=== PATIENT | male | born 1960 | race Caucasian/White ===

== ENCOUNTER 2017-11-08 12:48 | Day surgery (SDC) | payer OTHER ==
[~2017-11-08] VITALS: Ht 180.3 cm; Wt 80.6 kg
[~2017-11-08 12:48] MED LIST: DOXY100T53 PO; GEMF600 PO; HYDCHL25 PO; LOSA50 PO; ONDA8 PO
== END 2017-11-08 14:38 | disposition home or self-care (01) ==
LOC: ORSCSDS 12:48
PROVIDERS: Internal Medicine Gastroenterology
PROC: 0DBC8ZX Excision of Ileocecal Valve, Via Natural or Artificial Opening Endoscopic, Diagnostic (ICD-10-PCS; principal; 2017-11-08 14:00)
PROC: 0DBP8ZX Excision of Rectum, Via Natural or Artificial Opening Endoscopic, Diagnostic (ICD-10-PCS; principal; 2017-11-08 14:00)
DX: Z12.11 Encounter for screening for malignant neoplasm of colon (principal); K62.1 Rectal polyp; K57.30 Diverticulosis of large intestine without perforation or abscess without bleeding; I10 Essential (primary) hypertension; Z79.899 Other long term (current) drug therapy
CPT/HCPCS: 88305; J7120

== ENCOUNTER 2024-09-07 08:33 | Day surgery (SDC) | payer OTHER ==
[~2024-09-07] VITALS: Ht 178 cm; Wt 99.0 kg
[~2024-09-07 08:33] MED LIST changes: +ATOR20; +Avodart0.5 MG PO; +HYDROCHLOROTH12.5 MG PO; +LEVSOD75 PO; +NS 500 ML IV SCH; +TAMS.4ER PO
[2024-09-07 09:47] VITALS: BP 169/81
--- NOTE | 2024-09-07 09:55 | NUR ---
History, Chart, Medications and Allergies reviewed before start of procedure. Patient up to Ambulate independently. Gait steady. Pre-Op teaching done. Pt verbalizes understanding. Patient confirms NPO status and agrees with scheduled surgery. Patient states colon prep results clear. Patient States Post-Procedure ride home has been arranged.
[2024-09-07] MEDS ORDERED: propofoL 20 ML IV ONE ×2 (10:49→10:59)
--- NOTE | 2024-09-07 10:54 | NUR ---
09/07/24 1054 Emmanuel Nelson MONITOR INTACT WITH CONTINUOUS PULSE OXIMETRY, CONTINUOUS END TITAL CO2, AND INTERMITTENT BLOOD PRESSURE.AND EKG ANESTHESIA PER [facility]
[2024-09-07 11:28] VITALS: BP 149/87
--- NOTE | 2024-09-07 11:28 | NUR ---
REPORT RECEIVED FROM JERED BARRIOS. VSS. PT ON RA. PT ABLE TO REPOSITION SELF IN BED. PT REQUESTING PO FLUIDS AND TOLERATING THEM WELL. PT DENIES PAIN, NAUSEA OR OTHER DISCOMFORTS.
[2024-09-07 11:40] VITALS: BP 136/94
== END 2024-09-07 23:00 | disposition home or self-care (01) ==
LOC: ORSCMMR 08:33 → ORD 10:00 → ORSCMMR 23:00
DX: Z12.11 Encounter for screening for malignant neoplasm of colon (principal); Z86.0100 Personal history of colon polyps, unspecified; D12.2 Benign neoplasm of ascending colon; D12.5 Benign neoplasm of sigmoid colon; K63.5 Polyp of colon; K57.30 Diverticulosis of large intestine without perforation or abscess without bleeding; G47.33 Obstructive sleep apnea (adult) (pediatric); I10 Essential (primary) hypertension; E78.00 Pure hypercholesterolemia, unspecified; Z85.21 Personal history of malignant neoplasm of larynx; N40.0 Benign prostatic hyperplasia without lower urinary tract symptoms; Z79.899 Other long term (current) drug therapy
CPT/HCPCS: 88305; J2704; J7040